=== PATIENT | male | born 2000 | race Caucasian/White ===

== ENCOUNTER 2022-12-08 13:16 | Emergency (ER) | payer OTHER ==
[2022-12-08] MEDS ORDERED: DIPHTH,PERTUSS(ACELL),TET 0.5 ML DISP.SYRIN IM ONE ×2 (13:29→13:40)
[2022-12-08 13:35] VITALS: BP 136/86; PULSE 108; RESP 16; TEMP 99; BMI 29.0
== END 2022-12-08 13:51 | disposition home or self-care (01) ==
LOC: FER 13:16
PROC: 3E0234Z Introduction of Serum, Toxoid and Vaccine into Muscle, Percutaneous Approach (ICD-10-PCS; principal; 2022-12-08)
DX: S61.012A Laceration without foreign body of left thumb without damage to nail, initial encounter (principal); W26.8XXA Contact with other sharp object(s), not elsewhere classified, initial encounter
CPT/HCPCS: 90715; 99282-25

== ENCOUNTER 2023-08-11 03:42 | Emergency (ER) | payer OTHER, BC ==
[2023-08-11 03:55] VITALS: BP 144/97; PULSE 106; RESP 16; TEMP 97.9; BMI 29.0
[2023-08-11] MEDS: IBUPROFEN 400 MG TABLET (FP) PO ONE (03:59)
[2023-08-11] MEDS ORDERED: IBUPROFEN 400 MG TABLET (FP) PO ONE (03:59)
== END 2023-08-11 04:02 | disposition home or self-care (01) ==
LOC: FER 03:42
DX: S80.911A Unspecified superficial injury of right knee, initial encounter (principal); W22.8XXA Striking against or struck by other objects, initial encounter
CPT/HCPCS: 99283-25

== ENCOUNTER 2023-11-13 04:19 | Emergency (ER) | payer OTHER, BC ==
[2023-11-13 04:26] VITALS: BP 140/94; PULSE 92; RESP 16; TEMP 98.6; BMI 29.0
== END 2023-11-13 04:37 | disposition home or self-care (01) ==
LOC: FER 04:19
DX: S51.851A Open bite of right forearm, initial encounter (principal); W50.3XXA Accidental bite by another person, initial encounter
CPT/HCPCS: 99282-25